=== PATIENT | female | born 1970 | race Caucasian/White ===

== ENCOUNTER 2019-11-18 11:29 | Emergency (ER) | payer OTHER ==
[~2019-11-18] VITALS: Ht 152.4 cm; Wt 95.5 kg
[2019-11-18] MEDS ORDERED: IBUPROFEN 600 MG TAB PO STA (11:54)
[2019-11-18] MEDS ORDERED: IBUPROFEN 600 MG TAB ONE (12:08)
--- NOTE | 2019-11-18 12:34 | Diagnostic Imaging Report ---
Exam: Right toe 3 views History: Right greater than Comparison: None. Findings: No fracture or malalignment. 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 No abnormal soft tissue calcification or soft tissue defect. Impression: No acute osseous abnormality Signed by: Dr. Nabeel Carmen M.D. on 11/18/2019 12:30 PM
[2019-11-18 13:04] VITALS: BP 150/97
== END 2019-11-18 13:00 | disposition home or self-care (01) ==
LOC: FSED 11:29
DX: M79.674 Pain in right toe(s) (principal); S93.521A Sprain of metatarsophalangeal joint of right great toe, initial encounter; W01.0XXA Fall on same level from slipping, tripping and stumbling without subsequent striking against object, initial encounter; Y99.0 Civilian activity done for income or pay; F41.9 Anxiety disorder, unspecified
CPT/HCPCS: 99283